=== PATIENT | female | born 1975 | race Caucasian/White ===

== ENCOUNTER 2018-04-08 08:06 | Outpatient (CLI) | payer OTHER ==
--- NOTE | 2018-04-08 09:53 | ULT ---
THYROID ULTRASOUND: DATE: 04/08/2018. COMPARISON: None. HISTORY: Right-sided thyroid nodule. TECHNIQUE: Multiplanar, mcneil scale, sonographic imaging of the thyroid gland obtained. FINDINGS: Thyroid isthmus measures 3 mm in AP dimension. Right lobe measures 5.0 x 1.9 x 2.4 cm and the left l obe measures 4.4 x 1.2 x 1.2 cm. There is a dominant complex partially cystic and partially solid mass in the mid/lower pole of the ri ght lobe measuring 3.5 x 1.8 x 1.9 cm. The solid component located superiorly demonstrates internal blood flow. No thyroid nodule noted on the left or in the region of the thyroid isthmus. IMPRESSION: Dominant solid and cystic nodule within the right lobe of the thyroid gland. This is a TR4 lesion-mo derately suspicious. Given the size of greater than 1.5 cm, fine needle aspiration advised. CODE T
== END 2018-04-08 08:07 | disposition home or self-care (01) ==
LOC: BICULT 08:06
PROVIDERS: ATTEND Otolaryngology Plastic Surgery within the Head & Neck
DX: Z12.31 Encounter for screening mammogram for malignant neoplasm of breast (principal); E04.1 Nontoxic single thyroid nodule
CPT/HCPCS: 76536; 77063; 77067